=== PATIENT | female | born 1975 | race Caucasian/White ===

== ENCOUNTER 2018-11-24 19:18 | Inpatient (IN) | payer BC ==
[2018-11-24 21:37] LABS: Urine Benzodiazepine Screen None Detected (None Detect); Urine Opiates Screen None Detected (None Detect)
[2018-11-24] MEDS ORDERED: Buffered Lidocaine 1% SYRIN* 1 ML/SYRINGE INTRADERM ONE (22:10)
[2018-11-24] MEDS ORDERED: Lactated Ringers 1000 ML Bag* 1,000 ML IV ONE (22:10)
--- NOTE | 2018-11-24 22:17 | HP ---
General Information - Reason for Visit Pt reports increasing contractions since this afternoon, +FM, +bloody show - General Information Maternal Age: 43 Grav: 1 Para: 0 SAB: 0 IEA: 0 Estimated Due Date: 11/22/18 Determined By: LMP Gestational Age in Weeks/Days: 40w2d Maternal Blood Type and Rh: B Positive - Results this Serology/RPR Result: Non-Reactive Rubella Result: Immune HBsAg Result: Negative HIV Result: Negative GBS Culture Result: Negative Past Medical History Pertinent Past Medical History: Non-Contributory Pertinent Past Surgical History: None Pertinent Family History: Non-Contributory - Antepartal Records Antepartal Records: Reviewed, Complicated by: - AMA, low lying placenta (resolved), echogenic foci (resolved) Review of Systems Constitutional: Uncomfortable CV Complaint: No Respiratory: Shortness of Breath: No Gastrointestinal: No Nausea/Vomiting, Normal Bowel Movement Genitourinary: No Dysuria, No Bleeding, Spotting Musculoskeletal: No Complaint, No Epigastric Pain Neurological: No Headache Movement: Normal Exam Allergies/Adverse Reactions: Allergies Penicillins Allergy (Intermediate, Verified 11/24/18 20:00) Hives T: 98.4, P:87, R:18, BP:99/58, O2:100 Lab Values - Entire Visit: Laboratory Tests 11/24/18 11/24/18 19:45 21:08 Vag Amniotic Fld Detect Negative Urine Opiates Screen None detected Ur Barbiturates Screen None detected Ur Phencyclidine Scrn None detected Ur Amphetamines Screen None detected U Benzodiazepines Scrn None detected Urine Cocaine Screen None detected U Cannabinoids Screen None detected - Measurements Height: 5 ft 3 in Weight: 148 lb Weight in lbs: 148.572118 Body Mass Index (BMI): 26.2 Pre- Weight: 125 lb Weight Gained This : 23 lbs and 0 ozs - Exam Breast: Breast Exam Deferred CVA: No CVA Tenderness Extremities: No Edema Heart: Normal Rhythm/Heart Sounds HEENT: No Significant Findings Lungs: Clear Bilaterally Rectal: Rectal Exam Deferred Reflexes: DTR 2+ Thyroid: No Thyromegaly - Abdominal Exam Abdomen Exam: Fundal Height Consistent with Dates - Ultrasound/Biophysical Profile Ultrasound Status: Not Done Targeted Exam Findings Estimated Weight: 8lbs Cervical Exam: 3cm Effacement: 70% Station: -1 Presenting Part: Vertex Membrane Status: Intact Bleeding/Discharge: Bloody Show EFM Findings - External Monitor Findings Baseline Heart Rate: 145 External Monitor Findings: Accelerations Present, No Pattern of Variable or Late Decelerations, Variability Moderate, Baseline Stable Contractions: Regular, Moderate, 45-90 Seconds Contraction Frequency: 2-3 Assessment/Plan - Assessment 43 y.o. , 40w2d EGA, active labor - Plan Plan: Admit - Anticipate Vaginal Delivery - Date/Time of Admission Date of Admission: 11/24/18 Time of Admission: 22:00
[2018-11-24] MEDS ORDERED: fentaNYL* 50 MCG/ML 2 ML VIAL (100 MCG VIAL) IV SLOW PU PRN (23:27)
[2018-11-25 00:55] LABS: ABS Basophils 0.1 10^3/ul (0-0.2); ABS Lymphocytes 1.4 10^3/ul (1.0-4.8); ABS Monocytes 1.1 10^3/ul (0-0.8); ABS Neutrophils 14.7 10^3/ul (1.5-7.7); Eosinophil % 0.1 %; Hematocrit 38 % (35-47); Lymphocyte % 7.9 %; Mean Corpuscular HGB Conc 34 g/dL (31-36); Mean Corpuscular Hemoglobin 32 pg (27-31); Mean Corpuscular Volume 94 fL (80-97); Mean Platelet Volume 8.5 fL (7.4-10.4); Nucleated Red Blood Cells % 0.1; Platelet Count 319 10^3/uL (150-450); Red Blood Count 4.06 10^6 /uL (3.70-4.87); Red Cell Distribution Width 14 % (10-15); White Blood Count 17.2 10^3/uL (3.5-10.8)
[2018-11-25] MEDS ORDERED: OBEPIDURAL* 250 ML EPIDURAL ONE (01:00)
[2018-11-25] MEDS ORDERED: Phenylephrine 40 MCG/ML SYRINGE IV PUSH PRN ×2 (02:16)
[2018-11-25] MEDS ORDERED: EPHEDrine (Pressors)* 50 MG/ML VIAL IV PUSH PRN ×2 (02:16)
[2018-11-25] MEDS ORDERED: Famotidine TAB* 20 MG PO PRN (02:16)
[2018-11-25] MEDS ORDERED: Sodium Citrate/Citric Acid* 15 ML UDC PO PRN (02:16)
[2018-11-25] MEDS ORDERED: Lactated Ringers 1000 ML Bag* 1,000 ML IV ONE (02:16)
[2018-11-25] MEDS ORDERED: Lactated Ringers 1000 ML Bag* 500 ML IV PRN ×2 (02:16)
[2018-11-25] MEDS: Lactated Ringers 1000 ML Bag* 1,000 ML IV SCH ×2 (02:50→06:20)
[2018-11-25] MEDS ORDERED: OBEPIDURAL* 250 ML EPIDURAL SCH (03:00)
[2018-11-25] MEDS ORDERED: Lactated Ringers 1000 ML Bag* 1,000 ML IV SCH ×2 (03:00→11:00)
--- NOTE | 2018-11-25 07:23 | PN ---
Progress Note - Progress Note Date of Service: 11/25/18 - 1:30AM SOAP: Subjective: Pt coping with contractions but requests epidural. Objective: FHR: 150bpm, + accels, -decels, moderate variability, BP:127/81 cervical exam declined Assessment: 43 y.o. , 40w 3d EGA, active labor, Cat I NST Plan: 1) Anesthesia consult for epidural
--- NOTE | 2018-11-25 07:25 | PN ---
Progress Note - Progress Note Date of Service: 11/25/18 - 3:00AM SOAP: Subjective: Pt comfortable after epidural, pain well controlled. Pt denies pressure or urge to push and desires to rest. Objective: 150 bpm, + accels, -decels, moderate variability. cervix: 9/90/0, AROM: moderate amt of clear fluid Assessment: 43 y.o. , 40w3d EGA, Cat I NST Plan: 1) Rest, labor down reevaluate in 3 hrs or sooner PRN
--- NOTE | 2018-11-25 07:27 | PN ---
Progress Note - Progress Note Date of Service: 11/25/18 - 6:30AM SOAP: Subjective: Pt denies pressure or urge to push, pain still well controlled Objective: FHR: 145 bpm, + accels, occasional variables/early decels, moderate variability 10/100/+2 BP:119/66, P:96, R:18, T:99.8 Assessment: 43 y.o. 40w3d EGA, cat I NST, Plan: 1) pushing
[2018-11-25] MEDS ORDERED: Calcium Carbonate CHEW TAB* 500 MG (TUMS) ONE (09:16)
[2018-11-25] MEDS ORDERED: Oxytocin in LR* 20 UNITS/1,000 ML BAG IVPB ONE (10:04)
[2018-11-25] MEDS ORDERED: Dibucaine 1% 28.35 GM TUBE PR PRN (10:30)
[2018-11-25] MEDS ORDERED: Glycerin ADULT SUPP PR PRN (10:30)
[2018-11-25] MEDS ORDERED: Witch Hazel PAD* JAR TOPICAL PRN (10:30)
[2018-11-25] MEDS ORDERED: Calcium Carbonate CHEW TAB* 500 MG (TUMS) PO PRN (10:32)
--- NOTE | 2018-11-25 10:34 | PROCNOTE ---
[facility] OB: Delivery Note - Delivery A Date of : 11/25/18 Time of : 09:47 Sex: Female Score 1 Minute: 9 Gestational Age in Weeks and Days at Delivery: 40 Weeks and 3 Days Delivery Method: Spontaneous Vaginal Labor: Spontaneous Amniotic Fluid: Meconium Estimated Blood Loss: 350 Anesthesia/Analgesia: IM/IV, CEI for Labor, Nitrous-Labor Delivered By: Chyna Bryson - Nursery Level of Nursery: Regular/Bedside - Perineum Perineal Injury: Perineal Laceration, 2nd Degree Perineal Repair: By Delivering Practioner - Events Delivery Events of Note: Pitocin Only After Delivery, Pushed > 3 Hours
[2018-11-25] MEDS: Ibuprofen TAB* 600 MG PO PRN ×2 (10:47→20:22)
[2018-11-25] MEDS ORDERED: Oxytocin in LR* 20 UNITS/1,000 ML BAG IVPB SCH (11:00)
[2018-11-25] MEDS ORDERED: Lidocaine 1% INJ* 10 MG/ML 30 ML SDV ONE (11:32)
[2018-11-25] MEDS ORDERED: Simethicone TAB* 80 MG TAB.CHEW PO SCH (12:30)
[2018-11-25] MEDS: Docusate CAP* 100 MG PO SCH ×2 (13:12→20:23)
[2018-11-25] MEDS: Acetaminophen TAB* 325 MG PO PRN (16:00)
[2018-11-26] MEDS: Ibuprofen TAB* 600 MG PO PRN ×4 (02:13→20:39)
[2018-11-26] MEDS: Acetaminophen TAB* 325 MG PO PRN ×3 (04:53→20:39)
[2018-11-26 08:13] LABS: ABS Basophils 0.1 10^3/ul (0-0.2); ABS Eosinophils 0.1 10^3/ul (0-0.6); ABS Lymphocytes 2.5 10^3/ul (1.0-4.8); ABS Monocytes 1.1 10^3/ul (0-0.8); ABS Neutrophils 11.7 10^3/ul (1.5-7.7); Eosinophil % 0.5 %; Hematocrit 28 % (35-47); Hemoglobin 9.6 g/dL (12.0-16.0); Lymphocyte % 16.2 %; Mean Corpuscular HGB Conc 34 g/dL (31-36); Mean Corpuscular Hemoglobin 32 pg (27-31); Mean Corpuscular Volume 94 fL (80-97); Mean Platelet Volume 8.2 fL (7.4-10.4); Platelet Count 264 10^3/uL (150-450); Red Blood Count 2.99 10^6 /uL (3.70-4.87); Red Cell Distribution Width 14 % (10-15); White Blood Count 15.4 10^3/uL (3.5-10.8)
[2018-11-26] MEDS: Docusate CAP* 100 MG PO SCH ×3 (09:30→20:39)
[2018-11-26] MEDS: Ferrous Gluconate TAB* 324 MG TAB PO SCH ×2 (11:57→20:39)
[2018-11-27] MEDS: Ibuprofen TAB* 600 MG PO PRN (05:47)
[2018-11-27] MEDS: Acetaminophen TAB* 325 MG PO PRN (05:48)
[2018-11-27] MEDS: Docusate CAP* 100 MG PO SCH (08:17)
[2018-11-27] MEDS: Ferrous Gluconate TAB* 324 MG TAB PO SCH (08:17)
[2018-11-27 08:37] VITALS: BP 92/63
== END 2018-11-27 14:20 | disposition home or self-care (01) | DRG 560 ==
LOC: MCHOBOUT 19:18 → MCHOB 21:46
PROVIDERS: ADMIT Midwife; ATTEND Midwife
PROC: 10E0XZZ Delivery of Products of Conception, External Approach (ICD-10-PCS; principal; 2018-11-25)
PROC: 10907ZC Drainage of Amniotic Fluid, Therapeutic from Products of Conception, Via Natural or Artificial Opening (ICD-10-PCS; 2018-11-25)
PROC: 4A1HXCZ Monitoring of Products of Conception, Cardiac Rate, External Approach (ICD-10-PCS; 2018-11-25)
PROC: 0KQM0ZZ Repair Perineum Muscle, Open Approach (ICD-10-PCS; 2018-11-25)
DX: O48.0 Post-term pregnancy (principal); Z37.0 Single live birth; O77.0 Labor and delivery complicated by meconium in amniotic fluid; O70.1 Second degree perineal laceration during delivery; O90.81 Anemia of the puerperium; O76 Abnormality in fetal heart rate and rhythm complicating labor and delivery; Z3A.40 40 weeks gestation of pregnancy; Z88.0 Allergy status to penicillin
CPT/HCPCS: 36415; 80307; 84112; 85025; 86850; 86900; 86901; A9270-GY; J3010